=== PATIENT | male | born 1995 | race Caucasian/White ===

== ENCOUNTER 2017-01-06 21:50 | Emergency (ER) | payer MEDICAID, OTHER ==
[~2017-01-06] VITALS: Ht 180.3 cm; Wt 66.9 kg
[2017-01-06 23:53] LABS: BLOOD UREA NITROGEN 14 mg/dL (7-18)
[2017-01-07 00:17] VITALS: BP 116/75
== END 2017-01-07 00:58 | disposition home or self-care (01) ==
LOC: ED 23:59
DX: G44.211 Episodic tension-type headache, intractable (principal); R00.2 Palpitations
CPT/HCPCS: 36415; 80048; 82040; 85025; 93005; 99285

== ENCOUNTER 2018-03-14 16:37 | Emergency (ER) | payer OTHER ==
[~2018-03-14] VITALS: Ht 180.3 cm; Wt 73.0 kg
[2018-03-14 17:15] LABS: BASOPHILS # (AUTO) 0.09 x10^3/uL (0-0.3); BASOPHILS % (AUTO) 1 % (0-1); EOSINOPHILS # (AUTO) 0.27 x10^3/uL (0-0.8); EOSINOPHILS % (AUTO) 4 % (1-7); LYMPHOCYTES # (AUTO) 2.76 x10^3/uL (1-6.1); LYMPHOCYTES % (AUTO) 40 % (22-44); MD NO; MEAN CORPUSCULAR HEMOGLOBIN 29.5 pg (27.5-34.5); MEAN CORPUSCULAR HGB CONC 35.2 g/dL (33.2-36.2); MEAN CORPUSCULAR VOLUME 83.9 fL (81-97); MEAN PLATELET VOLUME 10.4 fL (7.4-10.4); MONOCYTES # (AUTO) 0.49 x10^3/uL (0-1.4); MONOCYTES % (AUTO) 7 % (2-9); NEUTROPHILS # (AUTO) 3.28 x10^3/uL (1.8-8.0); NEUTROPHILS % (AUTO) 48 % (42-75); PLATELET COUNT 190 x10^3/uL (130-400); RED CELL DISTRIBUTION WIDTH 12.5 % (9.4-14.8)
[2018-03-14 17:23] LABS: ALBUMIN 4.2 g/dL (3.4-5.0); ANION GAP 6 mmol/L (5-15); CALCIUM 8.8 mg/dL (8.5-10.1); CHLORIDE 107 mmol/L (98-107)
[2018-03-14 18:52] VITALS: BP 124/74
== END 2018-03-14 18:54 | disposition home or self-care (01) ==
LOC: ED 17:29
DX: R00.2 Palpitations (principal); F17.210 Nicotine dependence, cigarettes, uncomplicated
CPT/HCPCS: 36415; 80048; 82040; 83735; 85025; 93005; 99285; 99406

== ENCOUNTER 2019-07-24 20:37 | Emergency (ER) | payer SELFPAY ==
[~2019-07-24] VITALS: Ht 180.3 cm; Wt 77.0 kg
[2019-07-24 20:39] VITALS: BP 131/72
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
[2019-07-24] MEDS ORDERED: LIDOCAINE 1%-EPI 1:100K, 20ML ONE (20:54)
[2019-07-24] MEDS ORDERED: LIDOCAINE 1%-EPI 1:100K, 20ML INFIL ONE (21:00)
[2019-07-24] MEDS ORDERED: DIPH,PERTUSS(ACELL),TET VAC/PF 0.5 ML IM-VACC ONE ×2 (21:00→21:09)
[2019-07-24] MEDS ORDERED: NEOSPORIN OINT. PKT 1 PACKET ONE (21:36)
[2019-07-24] MEDS ORDERED: NEOSPORIN OINT. PKT 1 PACKET TP ONE (21:36)
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
== END 2019-07-24 21:52 | disposition home or self-care (01) ==
LOC: ED 21:40
DX: S01.81XA Laceration without foreign body of other part of head, initial encounter (principal); Y08.89XA Assault by other specified means, initial encounter; Y93.89 Activity, other specified; Y92.009 Unspecified place in unspecified non-institutional (private) residence as the place of occurrence of the external cause; Y99.8 Other external cause status
CPT/HCPCS: 12051; 70450; 90471; 90715

== ENCOUNTER 2019-08-02 09:19 | Emergency (ER) | payer SELFPAY ==
[2019-08-02 09:33] VITALS: BP 112/70
== END 2019-08-02 09:47 | disposition home or self-care (01) ==
LOC: ED 09:25
DX: S01.81XD Laceration without foreign body of other part of head, subsequent encounter (principal); X58.XXXD Exposure to other specified factors, subsequent encounter
CPT/HCPCS: 99282